=== PATIENT | male | born 1975 | race Caucasian/White ===

== ENCOUNTER → 2021-06-26 | Outpatient (CLI) | payer BC ==
--- NOTE | 2021-06-26 16:10 | Diagnostic Imaging Report ---
INDICATION: Left rib pain. TIME OF EXAM: 03:33 p.m. TECHNIQUE: Multiple views of left-sided ribs were obtained. FINDINGS: No displaced rib fractures identified. No parenchymal contusion, effusion or pneumothorax is seen. IMPRESSION: No acute abnormality is identified. Dictated by: Dictated on workstation # [id number]
== END ==
LOC: RAD FS 15:19
PROVIDERS: ATTEND Nurse Practitioner Family
DX: R07.81 Pleurodynia (principal)
CPT/HCPCS: 71100